=== PATIENT | female | born 1985 | race Caucasian/White ===

== ENCOUNTER 2022-03-05 12:31 | Outpatient (CLI) | payer BC ==
[~2022-03-05] VITALS: Ht 154.9 cm; Wt 102.3 kg
[~2022-03-05 12:31] MED LIST: PARAGUARD IU; PROTONIX 40MG T40 MG PO
[2022-03-05] MEDS ORDERED: VITAMIN D 50,1.25 MG PO (12:55)
[2022-03-05] MEDS ORDERED: CELEBREX 200MG200 MG PO (12:56)
[2022-03-05 12:57] VITALS: BP 157/93; PULSE 84; TEMP 99.3
[2022-03-05 14:00] VITALS: BP 132/63; PULSE 74
[2022-03-05 14:15] VITALS: BP 133/90; PULSE 65
[2022-03-05 14:30] VITALS: BP 127/73; PULSE 49
[2022-03-05 14:45] VITALS: BP 129/73; PULSE 56
[2022-03-05 15:00] VITALS: BP 121/105; PULSE 71
[2022-03-05 15:16] LABS: GLUCOSE,CSF 53 mg/dL (40-70); TOTAL PROTEIN,CSF 48 mg/dL (15-45)
--- NOTE | 2022-03-05 15:16 | NUR ---
Discharge instructions given to pt.Pt verbalizes understanding.Pt escorted out by this nurse.
[2022-03-05 15:31] LABS: CSF APPEARANCE CLEAR; CSF COLOR COLORLESS; CSF MONONUCLEAR 100 % (70-100); CSF POLYMORPHONUCLEAR 0 % (0-6); CSF RBC 1 /mm3 (0-0)
[2022-03-06 17:24] LABS: TB GOLD INTERPRETATION Negative (Negative)
[2022-03-10 10:58] LABS: ALBUMIN CSF 26.1 mg/dL (<=27.0)
[2022-03-10 12:18] LABS: CSF IGG/ALBUMIN 0.42 (<=0.21)
[2022-03-10 12:32] LABS: CSF SYNTHESIS RATE 43.86 mg/24 h (<=12); CSF-IGG INDEX 2.47 (<=0.85); IGG/ALBUMIN SERUM 0.17 (<=0.40)
== END 2022-03-05 15:44 ==
LOC: COL.RAD 12:31
PROVIDERS: Psychiatry & Neurology Neurology
DX: G35 Multiple sclerosis (principal)

== ENCOUNTER → 2022-09-10 | Outpatient (CLI) | payer BC ==
[~2022-09-10] MED LIST changes: +CELEBREX 200MG200 MG PO; +VITAMIN D 50,1.25 MG PO
== END ==
LOC: COL.RAD 13:41
DX: G35 Multiple sclerosis (principal); M47.814 Spondylosis without myelopathy or radiculopathy, thoracic region; M48.061 Spinal stenosis, lumbar region without neurogenic claudication; M51.24 Other intervertebral disc displacement, thoracic region
CPT/HCPCS: A9575

== ENCOUNTER → 2023-07-08 | Outpatient (CLI) | payer BC | LOC: MHCPAIN 13:07 | DX: M51.16 Intervertebral disc disorders with radiculopathy, lumbar region (principal); M54.50 Low back pain, unspecified; M50.30 Other cervical disc degeneration, unspecified cervical region; G35 Multiple sclerosis | CPT/HCPCS: G0463 ==

== ENCOUNTER → 2023-07-26 | Outpatient (CLI) | payer BC ==
[~2023-07-26] MED LIST changes: +Iohexol 300 - 10 ML VIAL ONE; +Lidocaine PF 2% (20 MG/ML) 2 ML VIAL ONE
== END ==
LOC: MHCPAIN 08:27
DX: M54.16 Radiculopathy, lumbar region (principal)
CPT/HCPCS: J1100; Q9967

== ENCOUNTER → 2023-08-09 | Outpatient (CLI) | payer BC ==
[~2023-08-09] MED LIST changes: +AUBAGIO14 MG PO; +FLEXERIL5 MG PO; -Iohexol 300 - 10 ML VIAL ONE; +LYRICA 100MG C100 M1 PO; -Lidocaine PF 2% (20 MG/ML) 2 ML VIAL ONE; +PREDNISONE50 MG; +PREDNISONE50 MG PO; +PROVIGIL200 MG PO
== END ==
LOC: MHCPAIN 15:24
DX: M51.16 Intervertebral disc disorders with radiculopathy, lumbar region (principal); M54.50 Low back pain, unspecified; G35 Multiple sclerosis; M50.30 Other cervical disc degeneration, unspecified cervical region; M25.552 Pain in left hip
CPT/HCPCS: G0463

== ENCOUNTER → 2023-09-23 | Outpatient (CLI) | payer BC | LOC: MHCPAIN 13:20 | DX: M51.16 Intervertebral disc disorders with radiculopathy, lumbar region (principal); G35 Multiple sclerosis; M54.50 Low back pain, unspecified; M50.30 Other cervical disc degeneration, unspecified cervical region | CPT/HCPCS: G0463 ==

== ENCOUNTER → 2023-11-01 | Outpatient (CLI) | payer BC | LOC: MHCPAIN 13:18 | DX: M51.16 Intervertebral disc disorders with radiculopathy, lumbar region (principal); M54.50 Low back pain, unspecified; G35 Multiple sclerosis; M50.30 Other cervical disc degeneration, unspecified cervical region | CPT/HCPCS: G0463 ==

== ENCOUNTER → 2024-02-07 | Outpatient (CLI) | payer BC ==
[~2024-02-07] MED LIST changes: +Iohexol 300 - 10 ML VIAL ONE; +Lidocaine PF 2% (20 MG/ML) 2 ML VIAL ONE
== END ==
LOC: MHCPAIN 13:14
DX: M54.16 Radiculopathy, lumbar region (principal)
CPT/HCPCS: J1100; Q9967